=== PATIENT | female | born 1950 | race Hispanic/Latino ===

== ENCOUNTER 2021-06-07 07:57 | Outpatient (CLI) | payer MEDICARE, OTHER | END 2021-06-07 07:58 | disposition home or self-care (01) | LOC: CSHCP 07:57 | PROVIDERS: ATTEND Internal Medicine Critical Care Medicine | DX: R06.09 Other forms of dyspnea (principal) | CPT/HCPCS: 71250; 94060; 94726; 94729; 94760 ==